=== PATIENT | female | born 1990 | race Caucasian/White ===

== ENCOUNTER 2016-10-15 19:46 | Emergency (ER) | payer MEDICAID ==
[~2016-10-15 19:46] MED LIST: PREN1PAK2 PO
--- NOTE | 2016-10-15 20:55 | PD ---
HPI Chief Complaint Patient presents because she was told to come here for induction due to low fluid volume Date Seen: Oct 15, 2016 Travel History International Travel<30 Days: No Contact w/Intl Traveler<30Days: No Known Affected Area: No History of Present Illness HPI Patient is 26-year-old white female at 40 weeks gestation [facility], told by Zeynep Bourgeois this to come here for induction due to low fluid volume seen on ultrasound today. That ultrasound was seen in SHIRA was 5.8 possibly Zeynep Bourgeois call someone here to schedule an induction however no one received a call that we know of either myself or Dr. Dove or either charge nurse the day and night received a call. She states baby is active heart rate tracing is reactive, she denies bleeding or labor pain Para: 0 : 1 Allergies-Medications (Allergen,Severity, Reaction): Coded Allergies: Penicillin (Verified Allergy, Mild, hives, 10/15/16) Home Meds Active Scripts W/O Vit A W/ Fe Carbo Pack (Citranatal Dha Pack)27-1 & 250 Mg Pack1 Ea PO DAILY #60 BLISTER Ref 11 30 day supply. Prov:Blank Bourgeois 05/23/16 Review of Systems General / Constitutional: No: Fever, Weight Gain, Chills, Other Eyes: No: Diploplia, Blurred Vision, Visual changes, Pain, Photophobia HENT: No: Headaches, Vertigo, Lightheadedness Cardiovascular: No: Irregular Rhythm, Chest Pain or Discomfort, Palpitations, Tachycardia, Syncope, Varicosities, Edema, Cyanosis Respiratory: No: Cough, Short of Breath, Other Gastrointestinal: No: Nausea, Vomiting, Diarrhea Genitourinary: No: Decreased Urinary Output, Oliguria Musculoskeletal: No: Limited ROM, Weakness, Cramping, Edema, Pain Skin: No Rash, No Itching, No Dryness, No Lumps, No Change in Pigmentation, No Change in Nails, No Alopecia, No Lesions Neurologic: No: Weakness, Dizziness, Syncope, Focal Abnormalities, Coordination Problem, Headache, Slurred Speech, Seizures Psychiatric: No: Depression, Suicidal Ideations, Homicidal Ideation Endocrine: No: Heat Intolerance, Cold Intolerance, Polydipsia, Polyuria, Other Physical Exam Narrative GENERAL: Well-nourished, well-developed patient. SKIN: Warm and dry. HEAD: Normocephalic and atraumatic. EYES: No scleral icterus. No injection or drainage. ENT: No nasal drainage noted. Mucous membranes pink. Airway patent. NECK: Supple, trachea midline. No JVD. CARDIOVASCULAR: Regular rate and rhythm without murmurs, gallops, or rubs. RESPIRATORY: Breath sounds equal bilaterally. No accessory muscle use. BREASTS: Bilateral exam showed no masses , no retractions, no nipple discharge. ABDOMEN/GI: Abdomen soft, non-tender, bowel sounds present, no rebound, no guarding Gravid to [-40] weeks size Fundal Height: [-40] GENITOURINARY: External Genitalia: intact and normal in appearance BUS glands: [-] Cervix: [-] Not checked this evening. Patient is not trudi and she says she was 2 cm in the office today Membranes: [intact ] Uterine Contractions: [-none] FHT's: Category: [1-] Baseline: [-144] Reactive: [yes-] Variability: [mod-] Decels: [none-] EXTREMITIES: No cyanosis or edema. BACK: Nontender without obvious deformity. No CVA tenderness. NEUROLOGICAL: Awake and alert. Motor and sensory grossly within normal limits. Five out of 5 muscle strength in all muscle groups. Normal speech. Data Data Labs Ultrasound done today at the [facility] shows an SHIRA 5.8 MDM Interpretation(s) This patient is 26-year-old white female at 40 weeks who presents to OB ED for induction for low fluid volume [facility] to [facility], that SHIRA was 5.8, supposedly Zeynep Bourgeois called to schedule her induction however nobody here heard of a phone call neither DrShelia or charge nurses know anything about that. Her NST is reactive tonight no contractions and the baby is active according the patient Plan I explained to the patient that her SHIRA 5.8 is borderline low and that with reactive NST that is not enough evidence to induce her labor and put her risk for which I would estimate between 50 and 80% chance she will get section in this setting, and I explained that its best that she have another ultrasound and 3-4 days reevaluate that SHIRA is less than 5 at that time and consider induction if it's 5 or better however just keep watching for the next few days and then consider induction at 41+ weeks if SHIRA stays steady. I recommend that [facility] to schedule this or she can come up here on or Saturday and get the ultrasound done to the OB ED and to reassess that situation then Diagnosis Diagnosis: Primary Impression: Amniotic fluid index borderline low Additional Impression: Non-stress test reactive Disposition: 01 DISCHARGE HOME Condition: Stable Yamil Seay II, MD Oct 15, 2016 20:54
[2016-11-09] MEDS ORDERED: NUVAMIS VAGINAL (11:01)
[2016-11-22] MEDS ORDERED: CEPH500C PO (16:04)
[2016-12-06] MEDS ORDERED: FLUC150T PO (12:58)
== END 2016-10-15 20:56 | disposition home or self-care (01) ==
LOC: HOBED 19:46
DX: O26.893 Other specified pregnancy related conditions, third trimester (principal); O41.93X0 Disorder of amniotic fluid and membranes, unspecified, third trimester, not applicable or unspecified
CPT/HCPCS: 99283

== ENCOUNTER 2016-10-17 21:14 | Inpatient (IN) | payer MEDICAID ==
[~2016-10-17] VITALS: Ht 172.7 cm; Wt 112.0 kg
[2016-10-17 21:45] VITALS: TEMP 98.4
[2016-10-17] MEDS ORDERED: LIDOCAINE HCL 1% 50 ML VIAL ONE (22:02)
[2016-10-17] MEDS: LACTATED RINGER'S 1000 ML INJ 1,000 ML IV SCH (22:25)
[2016-10-17] MEDS ORDERED: SULF10SU3 LEFT EYE (22:28)
[2016-10-17] MEDS ORDERED: PRED.125%O LEFT EYE (22:30)
--- NOTE | 2016-10-17 22:48 | HHI.HP ---
History & Physical H&P on[facility] Unit Number: [id number] Date of : 1990 Patient Status: Departed Emergency Room Attending Doctor: Yamil Seay II, MD HPI HPI Chief Complaint Patient presents because she was told to come here for induction due to low fluid volume Date Seen: Oct 15, 2016 Travel History International Travel<30 Days: No Contact w/Intl Traveler<30Days: No Known Affected Area: No History of Present Illness HPI Patient is 26-year-old white female at 40 weeks gestation [facility], told by Zeynep Bourgeois this to come here for induction due to low fluid volume seen on ultrasound today. That ultrasound was seen in SHIRA was 5.8 possibly Zeynep Bourgeois call someone here to schedule an induction however no one received a call that we know of either myself or Dr. Dove or either charge nurse the day and night received a call. She states baby is active heart rate tracing is reactive, she denies bleeding or labor pain Para: 0 : 1 History (Limited) History Allergies-Medications Allergies-Medications (Allergen,Severity, Reaction): Coded Allergies: Penicillin (Verified Allergy, Mild, hives, 10/15/16) Home Meds Active Scripts W/O Vit A W/ Fe Carbo Pack (Citranatal Dha Pack)27-1 & 250 Mg Pack1 Ea PO DAILY #60 BLISTER Ref 11 30 day supply. Prov:Blank Bourgeois 05/23/16 ROS Review of Systems General / Constitutional: No: Fever, Weight Gain, Chills, Other Eyes: No: Diploplia, Blurred Vision, Visual changes, Pain, Photophobia HENT: No: Headaches, Vertigo, Lightheadedness Cardiovascular: No: Irregular Rhythm, Chest Pain or Discomfort, Palpitations, Tachycardia, Syncope, Varicosities, Edema, Cyanosis Respiratory: No: Cough, Short of Breath, Other Gastrointestinal: No: Nausea, Vomiting, Diarrhea Genitourinary: No: Decreased Urinary Output, Oliguria Musculoskeletal: No: Limited ROM, Weakness, Cramping, Edema, Pain Skin: No Rash, No Itching, No Dryness, No Lumps, No Change in Pigmentation, No Change in Nails, No Alopecia, No Lesions Neurologic: No: Weakness, Dizziness, Syncope, Focal Abnormalities, Coordination Problem, Headache, Slurred Speech, Seizures Psychiatric: No: Depression, Suicidal Ideations, Homicidal Ideation Endocrine: No: Heat Intolerance, Cold Intolerance, Polydipsia, Polyuria, Other Physical Exam Physical Exam Narrative GENERAL: Well-nourished, well-developed patient. SKIN: Warm and dry. HEAD: Normocephalic and atraumatic. EYES: No scleral icterus. No injection or drainage. ENT: No nasal drainage noted. Mucous membranes pink. Airway patent. NECK: Supple, trachea midline. No JVD. CARDIOVASCULAR: Regular rate and rhythm without murmurs, gallops, or rubs. RESPIRATORY: Breath sounds equal bilaterally. No accessory muscle use. BREASTS: Bilateral exam showed no masses , no retractions, no nipple discharge. ABDOMEN/GI: Abdomen soft, non-tender, bowel sounds present, no rebound, no guarding Gravid to [-40] weeks size Fundal Height: [-40] GENITOURINARY: External Genitalia: intact and normal in appearance BUS glands: [-] Cervix: /-3/ vtx. Patient is not trudi and she says she was 2 cm in the office today Membranes: [intact ] Uterine Contractions: [-none] FHT's: Category: [1-] Baseline: [-144] Reactive: [yes-] Variability: [mod-] Decels: [none-] EXTREMITIES: No cyanosis or edema. BACK: Nontender without obvious deformity. No CVA tenderness. NEUROLOGICAL: Awake and alert. Motor and sensory grossly within normal limits. Five out of 5 muscle strength in all muscle groups. Normal speech. Data Data Data Labs [facility] SHIRA 5.8 [facility] MDM Interpretation(s) This patient is 26-year-old white female at 40 weeks 3 d who presents to OB ED for induction for low fluid volume [facility] to [facility], that SHIRA was 5.8, Zeynep Bourgeois called to schedule her induction . Her NST is reactive tonight no contractions and the baby is active according the patient , her last US had an SHIRA 5.8 Plan Admit to L&D for labor induction Diagnosis Diagnosis: Primary Impression: Amniotic fluid index borderline low Additional Impression: Non-stress test reactive Disposition: Admit Condition: Stable Yamil Seay II, MD, Bill L. II MD Oct 17, 2016 22:47 Yamil Saey II, MD, Bill L. II MD Oct 17, 2016 22:47
[2016-10-17] MEDS ORDERED: LACTATED RINGER'S 1000 ML INJ 1,000 ML IV PRN (22:49)
[2016-10-17] MEDS ORDERED: CITRIC ACID-SODIUM CITRATE LIQ 30 ML UDC PO SCH (23:00)
[2016-10-17] MEDS ORDERED: LIDOCAINE HCL 1% 50 ML VIAL INFIL PRN (23:00)
[2016-10-17] MEDS ORDERED: SODIUM CHLORID 0.9% 500 ML INJ 500 ML IV PRN (23:00)
[2016-10-17] MEDS ORDERED: OXYTOCIN 30 UNITS-500ML PREMIX 500 ML IV ONE (23:00)
[2016-10-17] MEDS ORDERED: MINERAL OIL 10 ML VIAL TOPICAL PRN (23:00)
[2016-10-17] MEDS ORDERED: DINOPROSTONE 10 MG VAG INSERT VAGINAL ONE (23:00)
[2016-10-17] MEDS ORDERED: LIDOCAINE HCL 1% 50 ML VIAL I-DERMAL PRN (23:00)
[2016-10-17 23:05] LABS: AUTOMATED NEUTROPHIL # 9.9 TH/MM3 (1.8-7.7); BASOPHIL % 0.3 % (0.0-2.0); EOSINOPHIL # 0.1 TH/MM3 (0-0.4); EOSINOPHIL % 0.7 % (0.0-4.0); HEMATOCRIT 32.5 % (35.0-46.0); HEMO FLAGS DIFF FINAL; LYMPH % 18.4 % (9.0-44.0); LYMPHOCYTE # 2.4 TH/MM3 (1.0-4.8); MEAN CELL VOLUME 79.5 FL (80.0-100.0); MEAN CORPUSCULAR HGB CONC 32.7 % (32.0-36.0); NEUT % 75.6 % (16.0-70.0); PLATELET COUNT 241 TH/MM3 (150-450); RED BLOOD COUNT 4.09 MIL/MM3 (4.00-5.30); RED CELL DISTRIBUTION WIDTH 14.2 % (11.6-17.2); WHITE BLOOD COUNT 13.1 TH/MM3 (4.0-11.0)
[2016-10-17] MEDS ORDERED: SODIUM CHLOR 0.9% 1000 ML INJ 1,000 ML IV PRN (23:09)
[2016-10-17 23:15] LABS: BACTERIA, URINE RARE /hpf; BLOOD, URINE NEG (NEG); COMMENT (UR) CULT NOT INDICATED; CULTURE IF INDICATED CULT NOT INDICATED; GLUCOSE,URINE NEG (NEG); KETONE, URINE NEG (NEG); MUCUS URINE FEW /lpf (OCC); NITRITE,URINE NEG (NEG); PH, URINE 5.5 (5.0-8.5); SQUAMOUS EPITHELIAL CELL URINE 4 /hpf (0-5); URINE COLOR YELLOW (YELLW/STRAW)
[2016-10-18] VITALS (110 sets, daily range): BP systolic 102–143; BP diastolic 41–93; PULSE 69–121; RESP 16–18; TEMP 97.5–98.3; O2SAT 98–100
[2016-10-18] MEDS: CLINDAMYCIN INJ 900 MG in SODIUM CHLORIDE 0.9% INJ 100 ML IV SCH ×3 (01:04→17:13)
--- NOTE | 2016-10-18 08:40 | PD.LABORPN ---
Subjective Subjective Changing shifts Dr. Muhammad coming on duty Chart reviewed This patient is a 26-year-old 1 para 0 at 40 weeks gestation who was admitted for induction of labor secondary to an SHIRA of 5.8 Cervidil was placed last night at approximately 11 due to come out at 11 AM Patient feeling irregular contractions Objective Vital Signs Vital Signs Date Time Temp Pulse Resp B/P Pulse Ox O2 Delivery O2 Flow Rate FiO2 10/18/16 08:00 99 120/79 10/18/16 08:00 18 10/18/16 07:30 16 10/18/16 07:03 101 18 130/79 10/18/16 01:06 82 18 117/70 10/18/16 01:06 98.2 Objective Cervidil was removed Pelvic Exam: Cervix: [-] Midline soft Dilatation: [-] 2 cm Effacement: [-] 50% effaced Station: [-] -2-3 station Presentation: [-] Vertex presentation Membranes: [intact Uterine Contractions: [-] Irregular contractions FHT's: Category: [-] 1 Baseline: [-] 140 Reactive: [-] + Accelerations up to 160 Variability: [-] Moderate [id number]-mwvy variability Decels: [-] 0 Assessment/Plan Assessment and Plan Intrauterine at 40 weeks gestation Borderline oligohydramnios For induction of labor at term Estimated weight approximate 6-1/2 7 pounds Plan; Cervidil has been removed Will allow patient to ambulate shower Will begin Pitocin at approximately 9 AM Procedure indications and complications discussed with the patient she agrees with plan Ryann Duron MD Oct 18, 2016 08:40
--- NOTE | 2016-10-18 08:41 | PD.LABORPN ---
Subjective Subjective Patient seen and examined. Doing well no complaints this time. Cervidil was just removed prior to exam, and she is happy to have that removed. She reports feeling contractions periodically, does not feel that they are very strong at this time. She is up walking and plans to shower shortly. Objective Vital Signs Vital Signs Date Time Temp Pulse Resp B/P Pulse Ox O2 Delivery O2 Flow Rate FiO2 10/18/16 08:00 99 120/79 10/18/16 08:00 18 10/18/16 07:30 16 10/18/16 07:03 101 18 130/79 10/18/16 01:06 82 18 117/70 10/18/16 01:06 98.2 Objective Pelvic Exam: Cervix: soft Dilatation: 2 Effacement: 30 Station: -3 Presentation: vertex Membranes: Intact Uterine Contractions: Irregularly FHT's: Category: 1 Baseline: 145 Reactive: Up to 160 Variability: Moderate Decels: None Assessment/Plan Problem List: (1) Amniotic fluid index borderline low (2) Non-stress test reactive (3) Intrauterine Assessment and Plan 26-year-old at 40/4 weeks gestational age currently being induced for labor 1. Intrauterine : GBS positive -Continuous heart tracing: Category 1 -Continuous monitoring for contractions: Irregular -Plan induction with Pitocin started 0900 -We'll anticipate AROM once dilation is favorable -Continue expectant management -Anticipate pain control with epidural DW: Julio Cesar Young MD R2 Oct 18, 2016 08:41
[2016-10-18] MEDS ORDERED: OXYTOCIN 30 UNITS-500ML PREMIX 500 ML IV SCH ×2 (09:00→09:15)
[2016-10-18] MEDS: LACTATED RINGER'S 1000 ML INJ 1,000 ML IV SCH ×3 (09:16→22:49)
[2016-10-18] MEDS: ONDANSETRON HCL 4 MG/2 ML VIAL IV PRN ×2 (09:17→15:36)
[2016-10-18] MEDS ORDERED: fentaNYL 2MCG-BUPIV 0.125% INJ 100 ML ONE (14:35)
--- NOTE | 2016-10-18 15:51 | PD.LABORPN ---
Subjective Subjective Patient resting comfortably in bed. Epidural in place. Patient does not have any complaints. Objective Vital Signs Vital Signs Date Time Temp Pulse Resp B/P Pulse Ox O2 Delivery O2 Flow Rate FiO2 10/18/16 15:35 80 10/18/16 15:31 81 108/64 10/18/16 15:30 76 10/18/16 15:30 16 10/18/16 15:26 85 102/57 10/18/16 15:25 84 10/18/16 15:21 89 112/67 10/18/16 15:20 99 10/18/16 15:15 94 114/66 10/18/16 15:15 98 10/18/16 15:13 91 114/57 10/18/16 15:11 91 113/55 10/18/16 15:10 87 10/18/16 15:09 85 118/55 10/18/16 15:07 83 114/62 10/18/16 15:05 16 10/18/16 15:05 86 10/18/16 15:05 92 118/67 10/18/16 15:03 93 121/65 10/18/16 15:01 89 122/63 10/18/16 15:00 16 10/18/16 15:00 98 10/18/16 14:58 95 128/71 10/18/16 14:55 94 10/18/16 14:50 114 10/18/16 14:25 16 10/18/16 14:00 89 18 10/18/16 14:00 125/70 10/18/16 13:30 16 10/18/16 12:59 102 18 10/18/16 12:59 114/72 10/18/16 12:59 102 114/72 10/18/16 12:00 18 10/18/16 11:30 16 10/18/16 11:30 87 117/70 10/18/16 11:28 86 130/74 10/18/16 11:00 121 18 126/90 10/18/16 11:00 97.5 10/18/16 10:30 16 10/18/16 09:58 16 10/18/16 09:57 100 143/93 10/18/16 09:30 16 10/18/16 09:00 16 10/18/16 08:00 99 120/79 10/18/16 08:00 18 Objective Pelvic Exam: Cervix: posterior Dilatation: 2-3cm Effacement: 50 Station: -3 Presentation: vertex Membranes: intact Uterine Contractions: q2-3 minutes on tocometer FHT's: Category: I Baseline: 130s Reactive: yes Variability: mod Decels: none Assessment/Plan Problem List: (1) Amniotic fluid index borderline low (2) Non-stress test reactive (3) Intrauterine Assessment and Plan Patient is a 26 year old at 40/4 weeks gestation admitted to L&D for induction of labor. 1. IUP - Category I tracing - Contractions q2-3 minutes on tocometer - Cervix: 2-3cm/50/-3 - Pitocin started at 09:00, continue per protocol - Anticipate AROM once dilation is favorable - Epidural in place - GBS negative - Continue expectant management Cortes Fuller MD R1 Oct 18, 2016 15:51
--- NOTE | 2016-10-18 16:40 | PD.LABORPN ---
Subjective Subjective Patient is comfortable after an epidural Objective Vital Signs Vital Signs Date Time Temp Pulse Resp B/P Pulse Ox O2 Delivery O2 Flow Rate FiO2 10/18/16 16:01 86 102/81 10/18/16 16:00 80 10/18/16 15:55 93 10/18/16 15:50 84 10/18/16 15:46 75 113/62 10/18/16 15:45 16 10/18/16 15:45 77 10/18/16 15:40 74 10/18/16 15:35 80 10/18/16 15:31 81 108/64 10/18/16 15:30 76 10/18/16 15:30 16 10/18/16 15:26 85 102/57 10/18/16 15:25 84 10/18/16 15:21 89 112/67 10/18/16 15:20 99 10/18/16 15:15 94 114/66 10/18/16 15:15 98 10/18/16 15:13 91 114/57 10/18/16 15:11 91 113/55 10/18/16 15:10 87 10/18/16 15:09 85 118/55 10/18/16 15:07 83 114/62 10/18/16 15:05 16 10/18/16 15:05 86 10/18/16 15:05 92 118/67 10/18/16 15:03 93 121/65 10/18/16 15:01 89 122/63 10/18/16 15:00 16 10/18/16 15:00 98 10/18/16 14:58 95 128/71 10/18/16 14:55 94 10/18/16 14:50 114 10/18/16 14:25 16 10/18/16 14:00 89 18 10/18/16 14:00 125/70 10/18/16 13:30 16 10/18/16 12:59 102 18 10/18/16 12:59 114/72 10/18/16 12:59 102 114/72 10/18/16 12:00 18 10/18/16 11:30 16 10/18/16 11:30 87 117/70 10/18/16 11:28 86 130/74 10/18/16 11:00 121 18 126/90 3/30/17 11:00 97.5 10/18/16 10:30 16 10/18/16 09:58 16 10/18/16 09:57 100 143/93 10/18/16 09:30 16 10/18/16 09:00 16 Objective Pelvic Exam: Cervix: [-] Midline Dilatation: [-] 3 cm Effacement: [-] 50% Station: [-] -2 Presentation: [-Vertex Membranes: Artificial rupture of membranes no meconium seen scant amount of fluid Uterine Contractions: [-] Irregular contractions Pitocin at 11 milliunits FHT's: Category: [-] 1 Baseline: [-] 130 Reactive: [-]+ Variability: [-] Moderate dsay-do-alqo variability Decels: [-] 0 Assessment/Plan Problem List: (1) Amniotic fluid index borderline low (2) Non-stress test reactive (3) Intrauterine Assessment and Plan Oligohydramnios Induction Artificial rupture membranes scant fluid IUPC placement Plan Continue present management will decrease her raise Pitocin as indicated Continue to anticipate vaginal delivery Ryann Duron MD Oct 18, 2016 16:39
[2016-10-18] MEDS ORDERED: ePHEDrine/NS 25 MG/5 ML SYR IV PRN (17:15)
[2016-10-18] MEDS: fentaNYL 2MCG-BUPIV 0.125% 100 ML EPIDURAL SCH ×2 (17:49→22:43)
[2016-10-18] MEDS ORDERED: NO SYSTEM NARCOTICS PRN (18:00)
[2016-10-18] MEDS ORDERED: DO NOT ADMINISTER ANTICOAGULANTS PRN (18:00)
[2016-10-18] MEDS ORDERED: LIDOCAINE 2% JELLY 30 ML TUBE ONE (19:36)
[2016-10-18] MEDS ORDERED: LACTATED RINGER'S 1000 ML INJ 1,000 ML IV ONE (21:15)
--- NOTE | 2016-10-18 21:15 | PD.LABORPN ---
Subjective Subjective Patient is increasingly uncomfortable states that she feels were fully Objective Vital Signs Vital Signs Date Time Temp Pulse Resp B/P Pulse Ox O2 Delivery O2 Flow Rate FiO2 10/18/16 21:01 89 132/74 10/18/16 20:46 82 127/73 10/18/16 20:31 81 127/71 10/18/16 20:24 98.0 18 10/18/16 20:16 78 112/68 10/18/16 20:01 79 121/74 10/18/16 19:46 88 121/74 10/18/16 19:31 92 127/74 10/18/16 19:16 82 119/68 10/18/16 19:10 94 10/18/16 19:05 91 10/18/16 19:01 90 120/84 10/18/16 19:00 89 10/18/16 18:55 90 10/18/16 18:50 85 10/18/16 18:46 95 126/82 10/18/16 18:45 92 10/18/16 18:45 16 10/18/16 18:40 89 10/18/16 18:35 92 10/18/16 18:31 91 114/70 10/18/16 18:30 90 10/18/16 18:29 98.3 10/18/16 18:29 16 10/18/16 18:25 92 10/18/16 18:20 92 10/18/16 18:16 92 112/69 10/18/16 18:15 92 10/18/16 18:15 16 10/18/16 18:10 87 10/18/16 18:05 85 10/18/16 18:01 88 116/66 10/18/16 18:00 16 10/18/16 18:00 82 10/18/16 17:55 81 10/18/16 17:50 90 10/18/16 17:49 16 10/18/16 17:46 81 116/64 10/18/16 17:45 84 10/18/16 17:45 18 10/18/16 17:40 79 10/18/16 17:35 78 10/18/16 17:31 80 118/66 10/18/16 17:30 16 10/18/16 17:30 74 10/18/16 17:25 73 10/18/16 17:20 72 10/18/16 17:16 74 111/59 10/18/16 17:15 75 10/18/16 17:15 16 10/18/16 17:10 75 10/18/16 17:05 71 10/18/16 17:01 72 114/64 10/18/16 17:00 74 10/18/16 17:00 16 10/18/16 16:55 76 10/18/16 16:50 81 10/18/16 16:47 83 111/41 10/18/16 16:45 77 10/18/16 16:45 16 10/18/16 16:40 94 10/18/16 16:35 91 10/18/16 16:31 83 114/77 10/18/16 16:30 100 10/18/16 16:30 97.9 10/18/16 16:30 16 10/18/16 16:25 80 10/18/16 16:20 86 10/18/16 16:16 80 111/62 10/18/16 16:15 84 10/18/16 16:10 80 10/18/16 16:05 88 10/18/16 16:01 86 102/81 10/18/16 16:00 80 10/18/16 16:00 16 10/18/16 15:55 93 10/18/16 15:50 84 10/18/16 15:46 75 113/62 10/18/16 15:45 16 10/18/16 15:45 77 10/18/16 15:40 74 10/18/16 15:35 80 10/18/16 15:31 81 108/64 10/18/16 15:30 76 10/18/16 15:30 16 10/18/16 15:26 85 102/57 10/18/16 15:25 84 10/18/16 15:21 89 112/67 10/18/16 15:20 99 10/18/16 15:15 94 114/66 10/18/16 15:15 98 10/18/16 15:13 91 114/57 10/18/16 15:11 91 113/55 10/18/16 15:10 87 10/18/16 15:09 85 118/55 10/18/16 15:07 83 114/62 10/18/16 15:05 16 10/18/16 15:05 86 10/18/16 15:05 92 118/67 10/18/16 15:03 93 121/65 10/18/16 15:01 89 122/63 10/18/16 15:00 16 10/18/16 15:00 98 10/18/16 15:00 98.0 10/18/16 14:58 95 128/71 10/18/16 14:55 94 10/18/16 14:50 114 10/18/16 14:25 16 10/18/16 14:00 89 18 10/18/16 14:00 125/70 10/18/16 13:30 16 Objective No cervical change from earlier exam Membranes: ruptured] Uterine Contractions: [-] Pitocin is at 12 milliunits with contractions every 2 minutes FHT's: Category: [-] 2 Baseline: [-] Reactive: [-] Variability: [-] Decels: [-] Patient starting to have variable decelerations positional change Assessment/Plan Problem List: (1) Amniotic fluid index borderline low (2) Non-stress test reactive (3) Intrauterine Assessment and Plan Failure to progress in labor; Category 2 trace Plan; have recommended to proceed with primary section The procedure indications and complications have been fully discussed with the patient and her family they agreed with the procedure Ryann Duron MD Oct 18, 2016 21:15
[2016-10-18] MEDS ORDERED: CLINDAMYCIN PHOS 600 MG/4 ML VIAL ONE (21:17)
[2016-10-18] MEDS ORDERED: OXYTOCIN 10 UNIT/ML AMP ONE (21:19)
[2016-10-18] MEDS ORDERED: ACETAMINOPHEN 1000 MG/100 ML VIAL IV ONE ×2 (21:19→22:30)
[2016-10-18] MEDS ORDERED: LACTATED RINGER'S 1000 ML INJ 1,000 ML IV SCH (21:45)
[2016-10-18] MEDS ORDERED: EPIDURAL-DO NOT ADMINISTER ANTICOAGULANTS PRN (21:45)
[2016-10-18] MEDS ORDERED: EPIDURAL-DIPHENHYDRAMINE HCL 50 MG CAP PO PRN (21:45)
[2016-10-18] MEDS ORDERED: EPIDURAL-DIPHENHYDRAMINE HCL 50 MG/ML VIAL IV PUSH PRN (21:45)
[2016-10-18] MEDS ORDERED: EPIDURAL-NALOXONE HCL 0.4 MG/ML AMP IV PRN (21:45)
[2016-10-18] MEDS ORDERED: EPIDURAL-NO SYSTEMIC NARCOTICS PRN (21:45)
[2016-10-18 22:08] LABS: BLOOD GAS O2 HGB SATURATION 48 % (90-100); CORD BLOOD GAS HCO3 22 mmol/L (21-29); CORD BLOOD GAS PCO2 36 mmHG (34-78); CORD BLOOD GAS PO2 22 mmHG (3.0-40.0); DRAW SITE CORD BLOOD; STAT YES
[2016-10-18] MEDS ORDERED: CLINDAMYCIN INJ 600 MG in SODIUM CHLORIDE 0.9% INJ 100 ML IV SCH (22:15)
[2016-10-18] MEDS ORDERED: OXYTOCIN 30 UNITS-500ML PREMIX 500 ML IV ONE (22:30)
[2016-10-18] MEDS ORDERED: KETOROLAC TROMETHAMINE 60 MG/2 ML (IM) VIAL IM PRN (22:30)
[2016-10-18] MEDS ORDERED: ONDANSETRON HCL 4 MG/2 ML VIAL IV PUSH PRN (22:30)
[2016-10-18] MEDS ORDERED: oxyCODONE/ACETAMINOPHEN 5 MG/325 MG TAB PO PRN ×2 (22:30)
[2016-10-18] MEDS ORDERED: SODIUM CHLORIDE 0.9% FLUSH 10 ML FLUSH IV FLUSH PRN (22:30)
[2016-10-18] MEDS ORDERED: ZOLPIDEM TARTRATE 5 MG TAB PO PRN (22:30)
[2016-10-18] MEDS ORDERED: DOCUSATE SODIUM 50 MG/SENNA 8.6 MG TAB PO PRN (22:30)
[2016-10-18] MEDS ORDERED: SIMETHICONE 80 MG CHEWABLE TAB PO PRN (22:30)
[2016-10-18] MEDS ORDERED: ONDANSETRON HCL 4 MG/2 ML VIAL ONE (22:31)
[2016-10-18] MEDS ORDERED: MORPHINE SULFATE PF 5 MG/10 ML VIAL ONE (22:31)
--- NOTE | 2016-10-18 22:35 | PD.OP ---
Operative Report Date of Surgery: Oct 18, 2016 Preoperative Diagnosis: Intrauterine at 40 weeks Oligohydramnios Failed induction Postoperative Diagnosis: Same Procedure: Primary low segment transverse section Anesthesia: Epidural Surgeon: Ryann Muhammad Truck Cleaner(s): Or staff Resident Surgeon: None Operation and Findings: Anesthesiologist:: Stewart Brand) Estimated blood loss: (600 cc ) Sponge and instrument count: ( Correct) Drains: ( None) Complications: (None ) Indications for procedure: ( Oligohydramnios failed induction category 2 tracing ) Findings: (Viable male infant weight 7 lbs. 12 oz. Apgars of 9 at 1 minute 9 at 5 minutes ) Timeout done The patient was taken to the operating room after appropriate levels of spinal anesthesia were achieved she was placed in the supine position. A Lopez catheter was inserted under sterile conditions and draining adequate clear urine. Intermittent compression hoses were placed and functioning. Bovie pad was placed and grounded. The abdomen was shaved prepped and draped in the usual sterile fashion. A transverse Pfannenstiel incision was made carried down through the skin subcutaneous tissue. The fascia was opened transversely. from the muscles in the midline. The rectus muscles were . Peritoneal cavity opened and the abdominal cavity entered. The bladder flap was taken down transversely and a low segment transverse incision made into the lower uterine segment. The fluid was (clear ). The infant was vertex. The vertex was delivered nose and mouth suctioned well the remainder of the body was then delivered. Cord doubly clamped and cut and the infant handed over to the awaiting nursing staff. The placenta spontaneously delivered intact with fundal massage. The uterus was then exteriorized cleaned of excessive blood and debris. The incision was then closed with 0 chromic in a continuous interlocking stitch. . No active bleeding. Tubes and ovaries were inspected and found to be normal. The abdominal cavity was then irrigated. The uterus placed back into the abdomen. Paracolic gutters cleaned of excessive blood and debris. Interceed was then placed over the incision and the anterior surface of the uterus in an inverted T. The peritoneum was then closed with 2-0 Vicryl. The muscles reapproximated. Inspection of the muscle bed demonstrated no bleeding. Intercede placed over the muscle at the midline. The fascia was then closed with 0 Vicryl in a continuous stitch. The subcutaneous tissue was irrigated bleeders controlled with Bovie. Karlee's fascia closed with 2-0 Vicryl. The skin was closed using ( subcuticular stitch on 3-0 Monocryl on a Riky needle). The uterus was massaged clearing blood and clots. The patient was cleaned. Pressure dressing and abdominal binder placed. Patient then transferred to the recovery room in stable condition, where her vital signs are ( stable). Urine is clear and adequate. Baby transferred to the nursery in stable condition. Ryann Duron MD Oct 18, 2016 22:35
[2016-10-18] MEDS ORDERED: CITRIC ACID-SODIUM CITRATE LIQ 30 ML UDC PO SCH (22:45)
[2016-10-18] MEDS ORDERED: LACTATED RINGER'S 1,000 ML BAG IV ONE (22:52)
[2016-10-18] MEDS ORDERED: MORPHINE SULFATE PF 5 MG/10 ML VIAL IT ONE (22:52)
[2016-10-18] MEDS ORDERED: KETOROLAC TROMETHAMINE 30 MG/ML (IVP) VIAL ONE (23:00)
[2016-10-19] VITALS: BP 107/59; PULSE 77; RESP 18; TEMP 98
[2016-10-19] MEDS: CLINDAMYCIN INJ 600 MG in SODIUM CHLORIDE 0.9% INJ 100 ML IV SCH ×2 (01:35→07:46)
[2016-10-19 03:30] VITALS: BP 105/56; PULSE 77; RESP 18; TEMP 98.2
[2016-10-19] MEDS ORDERED: LACTATED RINGER'S 1000 ML INJ 1,000 ML IV SCH (03:30)
[2016-10-19] MEDS: IBUPROFEN 600 MG TAB PO PRN ×3 (05:48→22:56)
--- NOTE | 2016-10-19 07:15 | HHI.OB ---
Subjective Post Operative Day: 1 Remarks Postoperative day number 1. AFVSS overnight. Pain controlled. Incision not draining. Decreased lochia. Denies dysuria. No breast tenderness. She is feeding the baby via breast. Appetite good. No nausea or vomiting. Positive flatus. Negative bowel movement. Plans to attempt ambulating today. Denies calf pain, shortness of breath, or cough. Otherwise, she is doing well this morning and has no other complaints. (Julio Cesar Rose MD R2) Remarks I rounded on the patient. I rounded with the resident. I reviewed the resident' s assessment and plan of care for this patient. I am in agreement with the plan of care for this patient. (Ryann Duron MD) Objective Vitals/I&O Vital Signs Date Time Temp Pulse Resp B/P Pulse Ox O2 Delivery O2 Flow Rate FiO2 10/19/16 03:30 77 18 105/56 10/19/16 03:30 98.2 10/19/16 00:00 77 18 107/59 10/19/16 00:00 98.0 10/18/16 23:26 98.2 10/18/16 23:15 83 18 114/60 99 10/18/16 23:00 86 18 113/65 98 10/18/16 22:45 77 18 110/62 99 10/18/16 22:43 18 10/18/16 22:30 98.2 69 16 114/53 100 10/18/16 21:16 90 134/79 10/18/16 21:01 89 132/74 10/18/16 20:46 82 127/73 10/18/16 20:31 81 127/71 10/18/16 20:24 98.0 18 10/18/16 20:16 78 112/68 10/18/16 20:01 79 121/74 10/18/16 19:46 88 121/74 10/18/16 19:31 92 127/74 10/18/16 19:16 82 119/68 10/18/16 19:10 94 10/18/16 19:05 91 10/18/16 19:01 90 120/84 10/18/16 19:00 89 10/18/16 18:55 90 10/18/16 18:50 85 10/18/16 18:46 95 126/82 10/18/16 18:45 92 10/18/16 18:45 16 10/18/16 18:40 89 10/18/16 18:35 92 10/18/16 18:31 91 114/70 10/18/16 18:30 90 10/18/16 18:29 98.3 10/18/16 18:29 16 10/18/16 18:25 92 10/18/16 18:20 92 10/18/16 18:16 92 112/69 10/18/16 18:15 92 10/18/16 18:15 16 10/18/16 18:10 87 10/18/16 18:05 85 10/18/16 18:01 88 116/66 10/18/16 18:00 16 10/18/16 18:00 82 10/18/16 17:55 81 10/18/16 17:50 90 10/18/16 17:49 16 10/18/16 17:46 81 116/64 10/18/16 17:45 84 10/18/16 17:45 18 10/18/16 17:40 79 10/18/16 17:35 78 10/18/16 17:31 80 118/66 10/18/16 17:30 16 10/18/16 17:30 74 10/18/16 17:25 73 10/18/16 17:20 72 10/18/16 17:16 74 111/59 10/18/16 17:15 75 10/18/16 17:15 16 10/18/16 17:10 75 10/18/16 17:05 71 10/18/16 17:01 72 114/64 10/18/16 17:00 74 10/18/16 17:00 16 10/18/16 16:55 76 10/18/16 16:50 81 10/18/16 16:47 83 111/41 10/18/16 16:45 77 10/18/16 16:45 16 10/18/16 16:40 94 10/18/16 16:35 91 10/18/16 16:31 83 114/77 10/18/16 16:30 100 10/18/16 16:30 97.9 10/18/16 16:30 16 10/18/16 16:25 80 10/18/16 16:20 86 10/18/16 16:16 80 111/62 10/18/16 16:15 84 10/18/16 16:10 80 10/18/16 16:05 88 10/18/16 16:01 86 102/81 10/18/16 16:00 80 10/18/16 16:00 16 10/18/16 15:55 93 10/18/16 15:50 84 10/18/16 15:46 75 113/62 10/18/16 15:45 16 10/18/16 15:45 77 10/18/16 15:40 74 10/18/16 15:35 80 10/18/16 15:31 81 108/64 10/18/16 15:30 76 10/18/16 15:30 16 10/18/16 15:26 85 102/57 10/18/16 15:25 84 10/18/16 15:21 89 112/67 10/18/16 15:20 99 10/18/16 15:15 94 114/66 10/18/16 15:15 98 10/18/16 15:13 91 114/57 10/18/16 15:11 91 113/55 10/18/16 15:10 87 10/18/16 15:09 85 118/55 10/18/16 15:07 83 114/62 10/18/16 15:05 16 10/18/16 15:05 86 10/18/16 15:05 92 118/67 10/18/16 15:03 93 121/65 10/18/16 15:01 89 122/63 10/18/16 15:00 16 10/18/16 15:00 98 10/18/16 15:00 98.0 10/18/16 14:58 95 128/71 10/18/16 14:55 94 10/18/16 14:50 114 10/18/16 14:25 16 10/18/16 14:00 89 18 10/18/16 14:00 125/70 10/18/16 13:30 16 10/18/16 12:59 102 18 10/18/16 12:59 114/72 10/18/16 12:59 102 114/72 10/18/16 12:00 18 10/18/16 11:30 16 10/18/16 11:30 87 117/70 10/18/16 11:28 86 130/74 10/18/16 11:00 121 18 126/90 10/18/16 11:00 97.5 10/18/16 10:30 16 10/18/16 09:58 16 10/18/16 09:57 100 143/93 10/18/16 09:30 16 10/18/16 09:00 16 10/18/16 08:00 99 120/79 10/18/16 08:00 18 10/18/16 07:30 16 (Julio Cesar Rose MD R2) Result Diagram: 10/17/16 2215 Objective Remarks GENERAL: Well-nourished, well-developed patient. CARDIOVASCULAR: Regular rate and rhythm without murmurs, gallops, or rubs. RESPIRATORY: Breath sounds equal bilaterally. No accessory muscle use. ABDOMEN/GI: Abdomen soft, non-tender, bowel sounds present. Incision: Clean, dry and intact. Fundus: Firm, non-tender at umbilicus. GENITOURINARY: Light to moderate bleeding. EXTREMITIES: No cyanosis or edema, non-tender, without signs of DVT. Medications and IVs Current Medications Medications (Trade) Dose Ordered Sig/Conchita Route Start Time Stop Time Status Last Admin Lactated Ringer's 1,000 ml @ 125 mls/hr Q8H IV 10/17/16 22:49 10/18/16 15:02 Lactated Ringer's 1,000 ml @ 3,000 mls/hr Q20M PRN IV 10/17/16 22:49 10/17/16 23:41 (NS 1000 ml Inj) 1,000 ml @ 100 mls/hr Q10H PRN IV 10/17/16 23:09 (Zofran Inj) 4 mg Q6H PRN IV 10/17/16 23:00 10/18/16 15:36 (fentaNYL INJ) 50 mcg Q1H PRN IV PUSH 10/17/16 23:00 (fentaNYL INJ) 100 mcg Q1H PRN IV PUSH 10/17/16 23:00 Mineral Oil 10 ml 10 ml UNSCH PRN TOPICAL 10/17/16 23:00 (Pitocin 30 Units-NS 500 ml Premix) 500 ml @ 0 mls/hr TITRATE IV 10/18/16 09:00 10/18/16 09:28 Miscellaneous Information No systemic narcotics to be given except... UNSCH PRN .XX 10/18/16 18:00 10/19/16 17:59 Miscellaneous Information DO NOT ADMINISTER ANY ANTICOAGUL... UNSCH PRN .XX 10/18/16 18:00 10/19/16 17:59 (fentaNYL 2MCG-BUPIV 0.125% INJ) 100 ml @ 0 mls/hr TITRATE EPIDURAL 10/18/16 18:00 10/18/16 22:43 Ephedrine Sulfate 10 mg 10 mg UNSCH PRN IV 10/18/16 17:15 10/19/16 17:14 Lactated Ringer's 1,000 ml @ 150 mls/hr Q6H40M IV 10/18/16 21:45 (Lr 1000 ml Inj) 1,000 ml @ 100 mls/hr Q10H IV 10/19/16 03:30 10/19/16 23:29 10/19/16 03:39 (NS Flush) 2 ml BID IV FLUSH 10/19/16 09:00 (NS Flush) 2 ml UNSCH PRN IV FLUSH 10/18/16 22:30 (Mylicon Chew) 80 mg QID PRN PO 10/18/16 22:30 (Motrin) 600 mg Q6H PRN PO 10/18/16 22:30 10/19/16 05:48 (Toradol Inj) 30 mg Q6H PRN IM 10/18/16 22:30 10/19/16 22:29 10/18/16 23:01 (Percocet 5-325 Mg) 1 tab Q4H PRN PO 10/18/16 22:30 Oxycodone/ Acetaminophen 2 tab 2 tab Q4H PRN PO 10/18/16 22:30 (Cleocin Inj/NS Inj) 104 ml @ 208 mls/hr Q6H IV 10/19/16 01:00 10/19/16 07:29 10/19/16 01:35 (Ashleigh-Colace) 2 tab Q12H PRN PO 10/18/16 22:30 (Ambien) 5 mg HS PRN PO 10/18/16 22:30 (M-M-R Ii Inj) 0.5 ml ONCE ONCE SQ 10/19/16 16:00 10/19/16 16:01 (Boostrix Inj) 0.5 ml ONCE ONCE IM 10/19/16 16:00 10/19/16 16:01 (Zofran Inj) 4 mg Q6H PRN IV PUSH 10/18/16 22:30 Miscellaneous Information NO SYSTEMIC NARCOTICS TO BE GIVEN FO... UNSCH PRN .XX 10/18/16 21:45 10/19/16 21:44 (Narcan Inj) 0.4 mg UNSCH PRN IV 10/18/16 21:45 10/19/16 21:44 (Benadryl Inj) 25 mg Q6H PRN IV PUSH 10/18/16 21:45 10/19/16 21:44 10/19/16 01:44 (Benadryl) 50 mg Q6H PRN PO 10/18/16 21:45 10/19/16 21:44 Miscellaneous Information ALL NURSING DEPARTMENTS UNSCH PRN .XX 10/18/16 21:45 10/19/16 21:44 (Julio Cesar Rose MD R2) Assessment/Plan Problem List: (1) Amniotic fluid index borderline low (2) Non-stress test reactive (3) Intrauterine (4) delivery delivered (5) care following delivery Assessment and Plan 26 y/o female who is POD# 1 s/p CXN. -Continue routine care. -Percocet and Motrin PRN pain. -Encouraged OOB. Advised pelvic rest for 6 wks. Will need a f/u appt. in 1 wk for incision check. -Re: ctrl, she is undecided at this time. -D/c in 1-2 more days. wdw OB attending Discharge Planning Discharge plan the next one to 2 days (Julio Cesar Rose MD R2) Julio Cesar Rose MD R2 Oct 19, 2016 07:15 Ryann Duron MD Oct 19, 2016 09:35
[2016-10-19 07:30] LABS: AUTOMATED NEUTROPHIL # 7.1 TH/MM3 (1.8-7.7); BASOPHIL % 0.1 % (0.0-2.0); EOSINOPHIL % 0.3 % (0.0-4.0); HEMATOCRIT 25.5 % (35.0-46.0); HEMO FLAGS DIFF FINAL; LYMPH % 16.5 % (9.0-44.0); LYMPHOCYTE # 1.5 TH/MM3 (1.0-4.8); MEAN CELL VOLUME 79.9 FL (80.0-100.0); MEAN CORPUSCULAR HEMOGLOBIN 26.5 PG (27.0-34.0); MEAN CORPUSCULAR HGB CONC 33.2 % (32.0-36.0); NEUT % 77.1 % (16.0-70.0); PLATELET COUNT 161 TH/MM3 (150-450); RED BLOOD COUNT 3.19 MIL/MM3 (4.00-5.30); RED CELL DISTRIBUTION WIDTH 14.4 % (11.6-17.2); WHITE BLOOD COUNT 9.1 TH/MM3 (4.0-11.0)
[2016-10-19 07:53] VITALS: BP 102/60; PULSE 64; RESP 18; TEMP 98.1
[2016-10-19] MEDS ORDERED: OXYTOCIN 30 UNITS-500ML PREMIX 500 ML IV PRN (08:30)
[2016-10-19] MEDS ORDERED: SODIUM CHLORIDE 0.9% FLUSH 10 ML FLUSH IV FLUSH SCH (09:00)
[2016-10-19 12:00] VITALS: BP 101/63; PULSE 77; RESP 16; TEMP 97.8
[2016-10-19] MEDS ORDERED: DIPHTH/TETANUS/ACEL PERTUSSIS (BOOSTER) 0.5 ML VIAL/PFS IM ONE (16:00)
[2016-10-19] MEDS ORDERED: MEASLES, MUMPS, RUBELLA VACCINE 0.5 ML VIAL SQ ONE (16:00)
[2016-10-19 20:00] VITALS: BP 102/64; PULSE 85; RESP 15; TEMP 97.8
[2016-10-20 08:00] VITALS: BP 109/73; PULSE 86; RESP 22; TEMP 98.1
--- NOTE | 2016-10-20 08:20 | HHI.DCPOC ---
Discharge Care Plan Diagnosis: (1) care following delivery Goals to Promote Your Health * To prevent worsening of your condition and complications * To maintain your health at the optimal level Directions to Meet Your Goals Take your medications as prescribed Follow your dietary instruction Follow activity as directed Keep your appointments as scheduled Take your immunizations and boosters as scheduled If your symptoms worsen call your PCP, if no PCP go to Urgent Care Center or Emergency Room Smoking is Dangerous to Your Health. Avoid second hand smoke Call the 24-hour hour crisis hotline for domestic abuse at Gerhard Rivera MD R2 Oct 20, 2016 08:20
--- NOTE | 2016-10-20 08:20 | HHI.OB ---
Subjective Post Operative Day: 2 Remarks Ms. Cronin is a who is POD 2 from CS (indicated by cat 2 tracing while being induced for oligo). Afebrile with stable vital signs overnight. Patient reports that she has been ambulating well. Patient denies dysuria. Patient does not report shortness of breath or leg swelling. Patient reports some continued pain and requests short duration of Percocet on discharge. Patient passing gas; has not had a bowel movement. Patient plans to call Zeynep Bourgeois for follow-up in ~10 days. (Gerhard Rivera MD R2) Remarks patient was seen and evaluated with Dr. Rivera. Patient is doing well and requesting d/c home today. She has no complaints at this time. incision was inspected and appears to be healing well without erythema or exudate. (Blank Aguilar MD) Objective Vitals/I&O Vital Signs Date Time Temp Pulse Resp B/P Pulse Ox O2 Delivery O2 Flow Rate FiO2 10/19/16 20:00 97.8 85 15 102/64 10/19/16 12:00 97.8 77 16 101/63 (Gerhard Rivera MD R2) Result Diagram: 10/19/16 0650 Objective Remarks GENERAL: Well-nourished, well-developed patient. CARDIOVASCULAR: Regular rate and rhythm without murmurs RESPIRATORY: CTAB, normal rate ABDOMEN/GI: Abdomen soft, non-tender, bowel sounds present. Incision: Clean, dry and intact. Fundus: Firm, non-tender below umbilicus. GENITOURINARY: Light bleeding; decreasing EXTREMITIES: No cyanosis or edema, non-tender, without signs of DVT. Medications and IVs Current Medications Medications (Trade) Dose Ordered Sig/Conchita Route Start Time Stop Time Status Last Admin Lactated Ringer's 1,000 ml @ 125 mls/hr Q8H IV 10/17/16 22:49 10/18/16 15:02 Lactated Ringer's 1,000 ml @ 3,000 mls/hr Q20M PRN IV 10/17/16 22:49 10/17/16 23:41 (NS 1000 ml Inj) 1,000 ml @ 100 mls/hr Q10H PRN IV 10/17/16 23:09 (Zofran Inj) 4 mg Q6H PRN IV 10/17/16 23:00 3/30/17 15:36 (fentaNYL INJ) 50 mcg Q1H PRN IV PUSH 10/17/16 23:00 (fentaNYL INJ) 100 mcg Q1H PRN IV PUSH 10/17/16 23:00 Mineral Oil 10 ml 10 ml UNSCH PRN TOPICAL 10/17/16 23:00 Oxytocin 500 ml @ 0 mls/hr TITRATE IV 10/18/16 09:00 10/18/16 09:28 Fentanyl/ Bupivacaine HCl 100 ml @ 0 mls/hr TITRATE EPIDURAL 10/18/16 18:00 10/18/16 22:43 (Lr 1000 ml Inj) 1,000 ml @ 150 mls/hr Q6H40M IV 10/18/16 21:45 (NS Flush) 2 ml BID IV FLUSH 10/19/16 09:00 (NS Flush) 2 ml UNSCH PRN IV FLUSH 10/18/16 22:30 (Mylicon Chew) 80 mg QID PRN PO 10/18/16 22:30 (Motrin) 600 mg Q6H PRN PO 10/18/16 22:30 10/19/16 22:56 (Percocet 5-325 Mg) 1 tab Q4H PRN PO 10/18/16 22:30 (Percocet 5-325 Mg) 2 tab Q4H PRN PO 10/18/16 22:30 10/19/16 22:56 (Ashleigh-Colace) 2 tab Q12H PRN PO 10/18/16 22:30 (Ambien) 5 mg HS PRN PO 10/18/16 22:30 (Zofran Inj) 4 mg Q6H PRN IV PUSH 10/18/16 22:30 (Gerhard Rivera MD R2) Assessment/Plan Problem List: (1) delivery delivered (2) care following delivery Assessment and Plan 26 y/o female who is POD# 2 s/p CXN. -Continue routine care. -Percocet and Motrin PRN pain. -Encouraged OOB. Advised pelvic rest for 6 wks. Pt will schedule f/u appt. in 1 wk for incision check. -D/c today -Advised reasons to return for further evaluation such as fever/chills, leg swelling, worsening vaginal bleeding or abdominal pain wdw OB attending Dr. Aguilar Discharge Planning Discharge plan for today (Gerhard Rivera MD R2) Gerhard Rivera MD R2 Oct 20, 2016 08:20 Blank Aguilar MD Oct 21, 2016 10:36
[2016-10-20] MEDS ORDERED: SENN1TAB PO (08:23)
[2016-10-20] MEDS ORDERED: IBUP-232 PO (08:23)
[2016-10-20] MEDS ORDERED: OXYC1TAB63 PO (08:23)
[2016-10-20] MEDS: IBUPROFEN 600 MG TAB PO PRN (08:47)
[2016-11-09] MEDS ORDERED: NUVAMIS VAGINAL (11:01)
[2016-11-22] MEDS ORDERED: CEPH500C PO (16:04)
[2016-12-06] MEDS ORDERED: FLUC150T PO (12:58)
== END 2016-10-20 14:12 | disposition home or self-care (01) | DRG 766 ==
LOC: H2EA 21:14 → H1EA 10-18 23:38
PROVIDERS: ADMIT Obstetrics & Gynecology; ATTEND Obstetrics & Gynecology
PROC: 10D00Z1 Extraction of Products of Conception, Low, Open Approach (ICD-10-PCS; principal; 2016-10-17)
PROC: 3E0P7GC Introduction of Other Therapeutic Substance into Female Reproductive, Via Natural or Artificial Opening (ICD-10-PCS; 2016-10-17)
PROC: 3E0R3CZ (ICD-10-PCS; 2016-10-17)
PROC: 00HU33Z Insertion of Infusion Device into Spinal Canal, Percutaneous Approach (ICD-10-PCS; 2016-10-17)
DX: O41.03X0 Oligohydramnios, third trimester, not applicable or unspecified (principal); O61.9 Failed induction of labor, unspecified; O99.824 Streptococcus B carrier state complicating childbirth; Z37.0 Single live birth; O62.2 Other uterine inertia; Z3A.40 40 weeks gestation of pregnancy
CPT/HCPCS: 59025; 81001; 82805; 85025; 86900; 86901; 90715; 99283; C1765; J0131; J1200; J1885; J2274; J2405; J2590; J3010; J7120